=== PATIENT | male | born 1955 | race Caucasian/White ===

== ENCOUNTER 2016-09-22 15:24 | Inpatient (IN) | payer OTHER ==
[~2016-09-22] VITALS: Ht 188 cm; Wt 96.3 kg
--- NOTE | ~2016-09-22 | HC ---
[facility] [place] [address] CONSULTATION Name: CONELAINE D Room #: 207-P [facility] IN .R.#: [id number] Admission: 09/22/16 Attend Phys: Turner Payne MD Discharge: Date of : 55 Report #: [id number] THIS REPORT FOR: //name// CC: FAM dung Rodriguez London Payne DATE OF SERVICE: 09/22/2016 INDICATION: Chest pain. HISTORY OF PRESENT ILLNESS: This is a 60-year-old gentleman, presenting to [facility] with complaints of left-sided chest pain. He describes a discomfort in his left lower chest area for the past 3 days. It comes and goes, exacerbated with exertion. He also feels shortness of breath during these episodes. He had a previous infarct in 2008, the symptoms are similar. The initial EKG reveals sinus rhythm with nonspecific ST segment changes. The troponin is elevated at 3.995. The patient has been transferred to [facility] for cardiac catheterization. His symptoms are still present. PAST MEDICAL HISTORY: 1. AR in 2008, undergoing stent placement at [facility]. Apparently failed Plavix therapy, requiring a repeat angioplasty procedure. History of stents to the left circumflex and LAD. 2. Ischemic cardiomyopathy, undergoing ICD placement 3. Hypertension, hypercholesterolemia, and insulin-dependent diabetes mellitus. 4. Failed Plavix therapy. ALLERGIES: None. MEDICATIONS: Include insulin, aspirin once a day, Coreg 25 mg twice a day, lisinopril 20 mg daily, and simvastatin 40 mg. SOCIAL HISTORY: Denies tobacco use. FAMILY HISTORY: Negative for premature CAD. REVIEW OF SYSTEMS: A full 10-point review of systems performed. Only the pertinent positives and negatives are described in the HPI. PHYSICAL EXAMINATION: VITAL SIGNS: Blood pressure is 160/100 and heart rate is 75 beats per minute. GENERAL APPEARANCE: He is a well-developed, well-nourished male, in no acute respiratory distress. HEAD AND EYES: Normocephalic. Sclerae are anicteric. [facility] [address] [place] [address] CONSULTATION Name: ELAINE ANDUJAR Room #: [address] [place] [address] [place] ..#: [id number] Admission: 09/22/16 Attend Phys: Tunrer Payne MD Discharge: Date of : 55 Report #: [id number] ENT: Oral mucosa moist. NECK: Supple. LUNGS: Clear to auscultation. CARDIAC: Regular rate and rhythm. S1 and S2 positive. ABDOMEN: Soft and nontender. Bowel sounds positive. EXTREMITIES: No major joint deformities. No edema. LABORATORY VALUES: ECG from [facility] reveals sinus rhythm, nonspecific T-wave abnormalities. Laboratory blood test from [place] reveals hemoglobin of 14.5, creatinine of 1.2 and troponin of 3.995. ASSESSMENT: 1. Acute coronary syndrome/non-ST elevation myocardial infarction/post-infarct angina. The patient will be undergoing a cardiac catheterization. 2. Diabetes mellitus, continue with insulin regimen. 3. Hypertension, continue with medications. 4. Hypercholesterolemia, continue with statin therapy. Thank you for allowing me to participate in the care of your patient. <ELECTRONICALLY SIGNED> By: Turner Payne MD 09/23/16 0842 1707 [id number] Turner Payne MD /nt
--- NOTE | ~2016-09-22 | CATHLAB ---
[place] [address] [facility] [place] [address] INVASIVE PROCEDURE REPORT Name: ELAINE ANDUJAR Room #: 207-P [facility] IN .R.#: [id number] Admission: 09/22/16 Attend Phys: Turner Payne MD Discharge: Date of : 55 Date of Service: 09/22/16 1827 Report #: [id number] THIS REPORT FOR: //name// CC: MABEL Jimenezkim [place] Payne DATE OF SERVICE: 09/22/2016 INDICATION: Non-ST elevation NE and acute coronary syndrome. Full risks, benefits and alternatives of cardiac catheterization were explained to the patient. All questions were answered. Informed consent was obtained. The right groin area was prepped and draped in a sterile manner. Lidocaine was given subcutaneously. A 4-Guatemalan sheath was inserted into the right femoral artery via modified Seldinger technique. CORONARY ANATOMY: Left main is a large caliber vessel, with no flow-limiting lesions. The LAD is a moderate sized caliber vessel, travelling down the anterior wall and wrapping around the apex. There is a stent in the proximal segment, patent with mild restenosis. Just before the stent, there is mild disease, approximately 30%. After the stent, there is a moderate stenosis, 40%. The first diagonal artery has an ostial stenosis of 50%. The left circumflex artery is a moderate to large size caliber vessel, codominant as it supplies three obtuse marginal arteries. There is a severe stenosis in the proximal segment of the left circumflex artery, at least 80%. There is a stent in the first obtuse marginal artery, with a 100% occlusion. The distal segment of this vessel is partially filled via collateral circulation. The second and third obtuse marginal arteries have mild disease. The RCA is totally occluded in the mid segment. The PDA is a small caliber vessel, partially filled via collateral circulation from the LAD. A left ventriculogram was performed revealing moderately severe LV dysfunction, ejection fraction of 30-35%. There is severe hypokinesis in the mid to apical anterior and distal inferior segments. The LVEDP is approximately 24 mmHg. There is no gradient across the outflow tract. [facility] [address] [place] [address] INVASIVE PROCEDURE REPORT Name: ELAINE ANDUJAR Room #: 207-P [facility] IN ..#: [id number] Admission: 09/22/16 Attend Phys: Turner Payne MD Discharge: Date of : 55 Date of Service: 09/22/16 1827 Report #: [id number] ANGIOPLASTY REPORT: A 6-Guatemalan system was used. The patient was given Angiomax. I placed a loose wire into the circumflex artery. The proximal lesion in the left circumflex artery was predilated with a 3.0 mm balloon. I then placed a 4.0 x 15 mm Resolute (drug-eluting stent), inflated up to 16 atmospheres. The stent was postdilated with a 4.0 mm noncompliant balloon, NC Trek inflated up to 18 atmospheres. There was a recoil within the lesion itself. There was VICKI 3 blood flow in the left circumflex artery with a residual stenosis of 10%. The total occlusion in the first obtuse marginal artery was intervened on. I was able to traverse a Whisper wire through this obstruction. This area was predilated with a 2.0 mm Euphora balloon. There was a significant residual stenosis. I elected to place a 2.75 x 18 mm Resolute, inflated up to 16 atmospheres. Final injections revealed VICKI 3 blood flow with a 10% residual stenosis at lesion site. IMPRESSION: 1. Successful insertion of a drug-eluting stent into the proximal left circumflex artery and proximal first obtuse marginal artery. 2. Patent stent in the LAD with [id number]-td-iwultunl stenosis. 3. Moderate stenosis in the ostium of the first diagonal artery, recommend medical therapy. 4. Total occlusion of a small RCA. The PDA is partially filled via collateral circulation. 5. Moderately severe LV dysfunction. 6. Recommend dual antiplatelet therapy. <ELECTRONICALLY SIGNED> By: Turner Payne MD 09/23/16 0841 1827 0003 Turner Payne MD /nt
--- NOTE | ~2016-09-22 | EKG ---
[address] [address] ELECTROCARDIOGRAM REPORT Name: ELAINE ANDUJAR Room #: 207-P ADM IN M.R.#: [id number] Admission: 09/22/16 Attend Phys: Turner Payne MD Discharge: Date of : 55 Report #: [id number] THIS REPORT FOR: //name// [facility] Test Date: 2016-09-22 Test Time: 19:10:14 Pat Name: ELAINE ANDUJAR Department: Room: Gender: M Floor Renovator: Bang LUIS : 1955 Requested By: Turner Payne Order Number: [id number] MD: Gage Benavides Measurements Intervals [place] Rate: 93 P: 46 RI: 184 QRS: -15 QRSD: 116 T: 116 QT: 370 QTc: 461 Interpretive Statements Sinus rhythm Nonspecific intraventricular conduction delay Possible Posterior infarct, acute (LCx)vs anterior ischemia No previous ECG available for comparison Electronically Signed On 09-25-2016 13:04:59 CDT by Gage Benavides [email or web address] <ELECTRONICALLY SIGNED> By: Gage Benavides MD 09/25/16 1304 09 09 Gage Benavides MD /[place]
--- NOTE | ~2016-09-22 | EKG ---
[address] [address] ELECTROCARDIOGRAM REPORT Name: ELAINE ANDUJAR Room #: 207- ADM IN M.R.#: [id number] Admission: 09/22/16 Attend Phys: Turner Payne MD Discharge: Date of : 55 Report #: [id number] THIS REPORT FOR: //name// [facility] Test Date: 2016-09-23 Test Time: 06:34:43 Pat Name: ELAINE ANDUJAR Department: Room: 207 P Gender: M Solar Energy Specialist: reginald : 1955 Requested By: Turner Payne Order Number: [id number] MD: Gage Benavides Measurements Intervals [place] Rate: 72 P: 38 MS: 186 QRS: -47 QRSD: 106 T: 159 QT: 417 QTc: 457 Interpretive Statements Sinus rhythm LAD, consider left anterior fascicular block Borderline low voltage, extremity leads Posterior infarct, acute (LCx)vs anterior ischemia Baseline wander in lead(s) V4,V6 No previous ECG available for comparison Electronically Signed On 09-25-2016 13:11:11 CDT by Gage Benavides [email or web address] <ELECTRONICALLY SIGNED> By: Gage Benavides MD 09/25/16 1311 0634 0634 Gage Benavides MD /EPI
[~2016-09-22 15:24] MED LIST: ASPIRIN325; CARVEDILOL25 MG; LANTUS; LISINOPRIL5 MG; LOVAZA1000 MG; NIASPAN; NOVOLOG100 UNIT/1; SIMVASTATIN40 MG
[2016-09-22 18:54] VITALS: BP 147/88
[2016-09-22 23:51] VITALS: BP 146/106
[2016-09-23 03:17] VITALS: BP 114/83
[2016-09-23 04:02] LABS: CALCIUM 8.7 mg/dL (8.5-10.1); CREATININE 1.4 mg/dL (0.6-1.3); POTASSIUM 4.9 mmol/L (3.5-5.1)
[2016-09-23 04:03] LABS: TROPONIN-I 24.72 ng/mL (<0.04-0.07)
[2016-09-23 04:11] LABS: HEMOGLOBIN 13.8 gm/dL (14.0-18.0); MCH 28.8 pg (26.0-34.0); MCHC 33.8 g/dL (28.0-37.0); MCV 85.2 fL (80.0-100.0); RBC 4.81 mil/uL (4.50-6.00); RDW 13.2 % (10.5-14.5); WBC 10.3 thou/uL (4.0-11.0)
[2016-09-23 07:15] VITALS: BP 131/90
[2016-09-23 12:00] VITALS: BP 113/75
[2016-09-23 16:00] VITALS: BP 99/70
[2016-09-23 21:37] VITALS: BP 109/78
[2016-09-24 03:47] VITALS: BP 106/75
[2016-09-24 04:04] LABS: ALBUMIN 2.6 g/dL (3.4-5.0); CALCIUM 8.9 mg/dL (8.5-10.1); CREATININE 1.5 mg/dL (0.6-1.3); TOTAL BILIRUBIN 0.6 mg/dL (<0.1-1.0); TOTAL PROTEIN 6.5 g/dL (6.4-8.2)
[2016-09-24 04:23] LABS: HEMATOCRIT 39.6 % (42.0-52.0); HEMOGLOBIN 13.5 gm/dL (14.0-18.0); MCH 28.8 pg (26.0-34.0); MCHC 34.1 g/dL (28.0-37.0); MCV 84.4 fL (80.0-100.0); RBC 4.69 mil/uL (4.50-6.00); RDW 13.4 % (10.5-14.5); WBC 12.5 thou/uL (4.0-11.0)
[2016-09-24 07:30] VITALS: BP 109/78
[2016-09-24 11:23] VITALS: BP 80/55
[2016-09-24 15:40] VITALS: BP 92/60
[2016-09-24 19:53] VITALS: BP 104/71
[2016-09-25] VITALS: BP 108/76
[2016-09-25 04:17] LABS: CALCIUM 8.6 mg/dL (8.5-10.1); CREATININE 1.3 mg/dL (0.6-1.3)
[2016-09-25 04:19] LABS: TROPONIN-I 17.87 ng/mL (<0.04-0.07)
[2016-09-25 05:00] VITALS: BP 112/79
[2016-09-25 07:45] VITALS: BP 112/78
[2016-09-25 11:25] VITALS: BP 104/73
[2016-09-25] MEDS ORDERED: EFFIENT10 MG PO (11:35)
[2016-09-25] MEDS ORDERED: CARVEDILOL6.25 MG PO (11:35)
[2016-09-25] MEDS ORDERED: LISINOPRIL10 MG PO (11:36)
[2016-09-25] MEDS ORDERED: LANTUS100 UNIT/M SUBQ (11:36)
[2016-09-25 13:45] VITALS: BP 104/73
[2016-09-25 16:05] VITALS: BP 104/73
== END 2016-09-25 16:05 | disposition home or self-care (01) | DRG 247 ==
LOC: 2N 15:24
PROVIDERS: Hospitalist; Internal Medicine Cardiovascular Disease
PROC: 027034Z Dilation of Coronary Artery, One Artery with Drug-eluting Intraluminal Device, Percutaneous Approach (ICD-10-PCS; principal; 2016-09-22)
PROC: B2151ZZ Fluoroscopy of Left Heart using Low Osmolar Contrast (ICD-10-PCS; 2016-09-22)
PROC: 4A023N7 Measurement of Cardiac Sampling and Pressure, Left Heart, Percutaneous Approach (ICD-10-PCS; 2016-09-22)
PROC: B2111ZZ Fluoroscopy of Multiple Coronary Arteries using Low Osmolar Contrast (ICD-10-PCS; 2016-09-22)
DX: I21.4 Non-ST elevation (NSTEMI) myocardial infarction (principal); I25.10 Atherosclerotic heart disease of native coronary artery without angina pectoris; I25.82 Chronic total occlusion of coronary artery; I25.5 Ischemic cardiomyopathy; I51.9 Heart disease, unspecified; E78.5 Hyperlipidemia, unspecified; Z79.4 Long term (current) use of insulin; Z95.5 Presence of coronary angioplasty implant and graft; E78.00 Pure hypercholesterolemia, unspecified; Z79.2 Long term (current) use of antibiotics; E11.65 Type 2 diabetes mellitus with hyperglycemia; I12.9 Hypertensive chronic kidney disease with stage 1 through stage 4 chronic kidney disease, or unspecified chronic kidney disease; N18.9 Chronic kidney disease, unspecified; K80.20 Calculus of gallbladder without cholecystitis without obstruction; Z95.810 Presence of automatic (implantable) cardiac defibrillator; Z82.49 Family history of ischemic heart disease and other diseases of the circulatory system
CPT/HCPCS: 10081